=== PATIENT | male | born 1945 | race Caucasian/White ===

== ENCOUNTER 2018-12-18 08:50 | Emergency (ER) | payer MEDICARE, BC ==
[~2018-12-18] VITALS: Wt 67.0 kg
[2018-12-18 08:52] VITALS: BP 158/71; PULSE 96; RESP 18
--- NOTE | 2018-12-18 10:38 | ERD ---
ER Documentation Chief Complaint Chief Complaint URINARY RETENTION, LAST VOIDED AT MIDNIGHT HPI Is a 73-year-old male who is been unable to urinate since about midnight last night. He does have a history of urinary retention. He denies any dysuria or hematuria. He has no abdominal pain. No fever. No nausea vomiting or diarrhea. ROS All systems reviewed and are negative except as per history of present illness. Medications Home Meds Active Scripts Cephalexin* (Keflex*) 500 Mg Capsule, 500 MG PO TID for 5 Days, CAP Prov:DWAIN PACHECO PA-C 12/18/18 Allergies Allergies: Coded Allergies: No Known Allergy (Unverified , 11/06/13) PMhx/Soc Hx Alcohol Use: Yes Hx Substance Use: No Hx Tobacco Use: No Smoking Status: Never smoker FmHx Family History: No diabetes Physical Exam Vitals Vital Signs Date Temp Pulse Resp B/P (MAP) Pulse Ox O2 O2 Flow FiO2 Time Delivery Rate 12/18/18 98.3 96 18 158/71 99 08:52 (100) Physical Exam INITIAL VITAL SIGNS: Reviewed by me GENERAL: Awake, alert and oriented x 4, well appearing, nontoxic, speaking in full sentences. No acute distress HEAD: Atraumatic NECK: Supple. No masses. Full range of motion. No meningismus. No midline t enderness. RESPIRATORY: Clear to auscultation bilaterally. Symmetric chest wall rise. No wheezing or rales. No accessory muscle use. CV: Regular rate and rhythm. No murmurs, rubs, or gallops. ABDOMEN: Soft, non-distended. Nontender. Negative [place]. Negative [place]Bur[place] point tenderness. No CVA tenderness bilaterally. No guarding. No rebound. : Deffered. Results 24 hrs Laboratory Tests Test 12/18/18 10:11 Bedside Urine pH (LAB) 7.5 Bedside Urine Protein (LAB) 2+ Bedside Urine Glucose (UA) Negative Bedside Urine Ketones (LAB) Negative Bedside Urine Blood 3+ Bedside Urine Nitrite (LAB) Negative Bedside Urine Leukocyte Esterase (L 3+ Procedures/MDM Is a 73-year-old male who has a urinary retention. Patient was able to urinate 2 times on his own. There is still concern he may return for urinary retention so Garay catheter was attempted however multiple times remaining were unable to place it. Spoke to the patient he states he would like to be discharged home. I explained to him that this may result in him having urinary retention again he may need to return in the next few hours for the same issue. Patient understands this. Patient counseled regarding my diagnostic impression and care plan. Prior to discharge all questions answered. Pt agrees with treatment plan and understands strict return precautions. Pt is instructed to follow up with primary care provider within 24-48 hours. Precautionary instructions provided including instructions to return to the ER if not improving or for any worsening or changing symptoms or concerns. Departure Diagnosis: Primary Impression: Retention of urine Condition: Stable Patient Instructions: Urinary Retention, Male Additional Instructions: Llame al doctor MAANA y ayana rosa maria JOHNSON PARA DENTRO DE 1-2 PANG.Dgale a la secretaria que nosotros le instruimos hacer esta johnson.Avise o llame si carrasco condicin se empeora antes de la johnson. Regresa aqui si peor o no mejor. DWAIN PACHECO PA-C December 18, 2018 10:38
[2018-12-18] MEDS ORDERED: CEPH-443 PO (12:23)
== END 2018-12-18 12:37 | disposition home or self-care (01) ==
LOC: FTE 08:50
DX: R33.9 Retention of urine, unspecified (principal)
CPT/HCPCS: 81003; 87086; 99283